=== PATIENT | female | born 1980 | race Two or more races ===

== ENCOUNTER 2017-02-02 11:58 | Day surgery (SDC) | payer OTHER ==
[~2017-02-02] VITALS: Ht 165.1 cm; Wt 72.4 kg
[~2017-02-02 11:58] MED LIST: OMEP40CA6 PO; RANI150T5 PO
[2017-02-02 13:20] VITALS: Ht 165.1 cm; Wt 72.4 kg
[2017-02-02] MEDS ORDERED: LIDOCAINE 4% SOLUTION 50 ML BTL ONE (13:28)
[2017-02-02 13:42] VITALS: BP 125/80; PULSE 87; RESP 18
[2017-02-02 14:35] VITALS: BP 114/75; PULSE 78; RESP 17
[2017-02-02] MEDS ORDERED: MIDAZOLAM 1 MG/ML 2 ML INJ ONE ×2 (14:36)
[2017-02-02] MEDS ORDERED: FENTAnyl 50 MCG/ML VIAL ONE (14:36)
[2017-02-02] MEDS ORDERED: MEPERIDINE 50 MG INJ ONE (14:36)
--- NOTE | 2017-02-02 14:39 | GILP ---
DATE OF PROCEDURE: 02/02/2017 PREOPERATIVE DIAGNOSIS: Occult blood positive stool. Past history of Helicobacter pylori. POSTOPERATIVE DIAGNOSIS: Normal study. PROCEDURE DONE: Esophagogastroduodenoscopy and biopsy. SURGEON: Bharti Paulino MD DESCRIPTION OF PROCEDURE: The patient was put in left lateral decubitus after obtaining informed co nsent. She was sedated with 2 mg IV Versed and 25 mcg of fentanyl. Advanced an Olympus video upper endoscope into the esophagus, stomach and duodenum. Examination demonstrated essentially normal es ophagus, normal stomach, normal duodenum up to second part. Random biopsy done in the stomach becau se of the past history of H. pylori. Plan will be to await for biopsy report. Followup as outpatient. Proceed with colonoscopy. Dictated By: BHARTI OSPINA Conf#: [id number] DID#: [id number] CC: ANA PHOENIX MD;*EndCC*
--- NOTE | 2017-02-02 14:44 | GILP ---
DATE OF PROCEDURE: 02/02/2017 PREOPERATIVE DIAGNOSIS: Occult blood positive stool. PROCEDURE DONE: Colonoscopy up to cecum. POSTOPERATIVE DIAGNOSIS: Normal study. DESCRIPTION OF PROCEDURE: The patient was put in left lateral decubitus after obtaining informed co nsent, was sedated and monitored on oximetry, EKG, blood pressure. After EGD, further sedation was done with 2 mg IV Versed and 25 mcg of fentanyl, 50 mg of IV Demerol. Rectal exam done which was no rmal. Advanced an Olympus video pediatric colonoscope all the way to cecum. Ileocecal valve, appen diceal opening identified. Photography done. Cecum, ascending colon, transverse colon normal. Ald[place] cending colon, sigmoid colon normal. In the rectum including retroflexion normal. Upon removal of scope, patient had no complication. Plan will be to repeat the stool for occult blood. If in futur e if it continues to be positive, consider video capsule enteroscopy in my office, otherwise, patien t will be continued to be followed in your office with testing. Meanwhile a repeat colonoscopy will be in 10 years. Dictated By: JOSLYN OSPINA Conf#: [id number] DID#: [id number] CC: ANA PHOENIX MD;*End*
== END 2017-02-02 16:24 | disposition home or self-care (01) ==
LOC: GIL 11:58
PROVIDERS: ATTEND Internal Medicine
DX: K29.50 Unspecified chronic gastritis without bleeding (principal)
CPT/HCPCS: 43239; 45378; 88305; 88312; J2175; J2250; J3010; Z7610